=== PATIENT | female | born 1970 | race Caucasian/White ===

== ENCOUNTER 2023-03-27 04:05 | Day surgery (SDC) | payer OTHER ==
[2023-03-26 16:48] VITALS: BMI 30.9
[2023-03-27] MEDS ORDERED: DEXAMETHASONE SOD PHOSPHATE 4 MG/1 ML VIAL ONE (10:03)
[2023-03-27] MEDS ORDERED: ONDANSETRON 4 MG/2 ML VIAL ONE (10:03)
[2023-03-27] MEDS ORDERED: LIDOCAINE HCL/PF 2% SDV 5ML VIAL ONE (10:03)
[2023-03-27] MEDS ORDERED: SODIUM CHLORIDE 0.9% P/F 10 ML VIAL IJ ONE (10:03)
[2023-03-27] MEDS ORDERED: ceFAZolin SODIUM 1 GM VIAL ONE (10:03)
[2023-03-27] MEDS ORDERED: LACTATED RINGERS SOLUTION 1,000 ML IV SCH (10:30)
[2023-03-27] MEDS ORDERED: oxyCODONE HCL 5 MG TABLET PO PRN (10:30)
[2023-03-27] MEDS ORDERED: ceFAZolin SODIUM 1 GM VIAL IVPB ONE ×2 (10:43→11:15)
[2023-03-27] MEDS ORDERED: LIDOCAINE HCL 1%, 10 MG/ML (20ML VIAL) INF ONE ×2 (10:50→11:27)
[2023-03-27] MEDS ORDERED: MIDAZOLAM HCL 2 MG/2 ML SINGLE DOSE VIAL ONE (11:06)
[2023-03-27] MEDS ORDERED: ACETAMINOPHEN INJECTION 100 ML IVPB ONE (12:08)
[2023-03-27] MEDS ORDERED: oxyCODONE HCL 5 MG TABLET ONE ×2 (14:11→14:48)
[2023-03-27] MEDS ORDERED: oxyCODONE HCL 5 MG TABLET PO ONE ×2 (14:13→14:44)
[2023-03-27 14:47] VITALS: RESP 16
[2023-03-27 16:18] VITALS: BP 129/84; PULSE 87; TEMP 97.1
== END 2023-03-27 17:00 | disposition home or self-care (01) ==
LOC: JASU-SURG 04:05
PROVIDERS: ATTEND Surgery
PROC: 0HBT0ZZ Excision of Right Breast, Open Approach (ICD-10-PCS; principal; 2023-03-27 10:00)
DX: C50.911 Malignant neoplasm of unspecified site of right female breast (principal)
CPT/HCPCS: 19281; 76098-TC-FY; 78195-TC; 81025; 88307-TC; 88342-TC; 94760; A4648; A9541; J0131

== ENCOUNTER 2024-12-12 15:19 | Emergency (ER) | payer OTHER ==
[2024-12-12 15:40] VITALS: RESP 18; BMI 29.2
[2024-12-12] MEDS ORDERED: ALBUTEROL SO4 2.5/IPRATROPIUM 0.5 INH SOL 3 ML VIAL.NEB. NEB ONE ×2 (16:33→17:12)
[2024-12-12] MEDS: ALBUTEROL SO4 2.5/IPRATROPIUM 0.5 INH SOL 3 ML VIAL.NEB. NEB ONE ×2 (16:36→17:15)
[2024-12-12] MEDS ORDERED: guaiFENesin/D-METHORPHAN HB 10 ML UNIT-DOSE CUPS ONE (17:55)
[2024-12-12] MEDS: guaiFENesin/D-METHORPHAN HB 10 ML UNIT-DOSE CUPS PO ONE (17:58)
[2024-12-12 18:51] VITALS: BP 125/81; PULSE 84; TEMP 98.2
== END 2024-12-12 18:15 | disposition home or self-care (01) ==
LOC: JER 15:19
PROC: 3E0F7GC Introduction of Other Therapeutic Substance into Respiratory Tract, Via Natural or Artificial Opening (ICD-10-PCS; principal; 2024-12-12)
PROC: 3E0F7GC Introduction of Other Therapeutic Substance into Respiratory Tract, Via Natural or Artificial Opening (ICD-10-PCS; 2024-12-12)
DX: U07.1 COVID-19 (principal); J40 Bronchitis, not specified as acute or chronic; R09.89 Other specified symptoms and signs involving the circulatory and respiratory systems; R05.9 Cough, unspecified; R06.2 Wheezing
CPT/HCPCS: 71046-TC-FY; 87637-QW; 99284-25